=== PATIENT | female | born 1960 | race Caucasian/White ===

== ENCOUNTER 2018-04-29 08:24 | Outpatient (CLI) | payer OTHER | END 2018-04-29 08:25 | disposition home or self-care (01) | LOC: BICMAMMO 08:24 | PROVIDERS: ATTEND Student in an Organized Health Care Education/Training Program | DX: Z12.31 Encounter for screening mammogram for malignant neoplasm of breast (principal) | CPT/HCPCS: 77063; 77067 ==

== ENCOUNTER 2018-06-12 07:59 | Outpatient (CLI) | payer OTHER ==
--- NOTE | 2018-06-12 10:33 | CT ---
CT ABDOMEN AND PELVIS PERFORMED WITH AND WITHOUT CONTRAST ENHANCEMENT: HISTORY: Two instances of gross hematuria over the past two to three months, and also a history of a UTI. FINDINGS: ABDOMEN: The lung bases are clear. The liver shows a 1 cm hypodensity within the left lobe, difficult to characterize due to the small s ize, but does not appear to show any enhancement and is probably a small cyst. The spleen, pancreas, and gallbladder regions all appear unremarkable. The right and left adrenal glands are normal. The right and left kidneys are normal in size. There are no renal calculi seen. No obstruction. Th ere are some tiny, subcentimeter hypodensities involving both kidneys, statistically most likely tiny cysts. No dilatation of either collecting system, and no filling defects. No significant periaortic or mesenteric adenopathy. PELVIS: There is no evidence of any significant adenopathy, mass, or free fluid. The bladder region appears unremarkable. IMPRESSION: No evidence of renal calculi. Tiny hypodensities involving both kidneys appear to represent small cy sts. POS: [facility]
[2018-06-12] MEDS ORDERED: ISOVUE-370 76%-LOCM 1 ML ONE (16:14)
== END 2018-06-12 08:00 | disposition home or self-care (01) ==
LOC: BICCT 07:59
PROVIDERS: ATTEND Urology
DX: N39.0 Urinary tract infection, site not specified (principal); N28.89 Other specified disorders of kidney and ureter; Z87.448 Personal history of other diseases of urinary system
CPT/HCPCS: 74178

== ENCOUNTER 2019-05-03 09:52 | Outpatient (CLI) | payer OTHER ==
--- NOTE | 2019-05-03 10:48 | MMO ---
Bilateral MAMMO Bilat Screen [facility]. CLINICAL HISTORY: Patient is 58 years old and is seen for screening. The patient has no family history of breast cancer. The patient has no personal history of cancer. VIEWS: The views performed were: bilateral craniocaudal with tomosynthesis; bilateral mediolateral oblique with tomosynthesis; and bilateral exaggerated craniocaudal. FILMS COMPARED: The present examination has been compared to prior imaging studies performed at [facility] on 04/28/2013, 05/08/2015, 05/10/2016 and 04/29/2018. This study has been interpreted with the assistance of computer-aided detection. MAMMOGRAM FINDINGS: The breasts are extremely dense, which may lower the sensitivity of mammography. There are stable benign appearing calcifications seen in both breasts. There are no suspicious masses, suspicious calcifications, or new areas of architectural distortion. IMPRESSION: THERE IS NO MAMMOGRAPHIC EVIDENCE OF MALIGNANCY. A ROUTINE FOLLOW-UP MAMMOGRAM IN 1 YEAR IS RECOMMENDED. THE RESULTS OF THIS EXAM WERE SENT TO THE PATIENT. ACR BI-RADS Category 2 - Benign finding MAMMOGRAPHY NOTE: 1. A negative mammogram report should not delay a biopsy if a dominant of clinically suspicious mass is present. 2. Approximately 10% to 15% of breast cancers are not detected by mammography. 3. Adenosis and dense breasts may obscure an underlying neoplasm. Reported by: YURY CRAIG MD Electonically Signed: [id number]
== END 2019-05-03 09:53 | disposition home or self-care (01) ==
LOC: BICMAMMO 09:52
PROVIDERS: ATTEND Student in an Organized Health Care Education/Training Program
DX: Z12.31 Encounter for screening mammogram for malignant neoplasm of breast (principal)
CPT/HCPCS: 77063; 77067

== ENCOUNTER 2020-05-05 12:23 | Outpatient (CLI) | payer OTHER ==
--- NOTE | 2020-05-05 14:01 | MMO ---
Bilateral MAMMO Bilat Screen [facility]. CLINICAL HISTORY: Patient is 59 years old and is seen for screening. The patient has no family history of breast cancer. The patient has no personal history of cancer. The patient has a history of bilateral mastopexy in July,. VIEWS: The views performed were: bilateral craniocaudal with tomosynthesis and bilateral mediolateral oblique with tomosynthesis. FILMS COMPARED: The present examination has been compared to prior imaging studies performed at [facility] on 05/08/2015, 05/10/2016, 04/29/2018 and 05/03/2019. This study has been interpreted with the assistance of computer-aided detection. MAMMOGRAM FINDINGS: The breasts are extremely dense, which may lower the sensitivity of mammography. There are benign appearing calcifications seen in both breasts. There are post-operative changes. There are no suspicious masses, suspicious calcifications, or new areas of architectural distortion. IMPRESSION: THERE IS NO MAMMOGRAPHIC EVIDENCE OF MALIGNANCY. A ROUTINE FOLLOW-UP MAMMOGRAM IN 1 YEAR IS RECOMMENDED. THE RESULTS OF THIS EXAM WERE SENT TO THE PATIENT. ACR BI-RADS Category 2 - Benign finding MAMMOGRAPHY NOTE: 1. A negative mammogram report should not delay a biopsy if a dominant of clinically suspicious mass is present. 2. Approximately 10% to 15% of breast cancers are not detected by mammography. 3. Adenosis and dense breasts may obscure an underlying neoplasm. Reported by: JOSSIE BERG MD Electonically Signed: [id number]
== END 2020-05-05 12:24 | disposition home or self-care (01) ==
LOC: BICMAMMO 12:23
PROVIDERS: ATTEND Student in an Organized Health Care Education/Training Program
DX: Z12.31 Encounter for screening mammogram for malignant neoplasm of breast (principal); Z98.890 Other specified postprocedural states
CPT/HCPCS: 77063; 77067

== ENCOUNTER 2020-11-13 12:56 | Outpatient (CLI) | payer OTHER | END 2020-11-13 12:57 | disposition home or self-care (01) | LOC: BICRAD 12:56 | PROVIDERS: ATTEND Internal Medicine | DX: M79.606 Pain in leg, unspecified (principal) | CPT/HCPCS: 72100 ==

== ENCOUNTER 2021-05-07 10:38 | Outpatient (CLI) | payer OTHER | END 2021-05-07 10:39 | disposition home or self-care (01) | LOC: BICMAMMO 10:38 | PROVIDERS: ATTEND Student in an Organized Health Care Education/Training Program | DX: Z12.31 Encounter for screening mammogram for malignant neoplasm of breast (principal); Z98.890 Other specified postprocedural states | CPT/HCPCS: 77063; 77067 ==

== ENCOUNTER 2022-05-08 08:33 | Outpatient (CLI) | payer OTHER | END 2022-05-08 08:34 | disposition home or self-care (01) | LOC: BICMAMMO 08:33 | PROVIDERS: ATTEND Student in an Organized Health Care Education/Training Program | DX: Z12.31 Encounter for screening mammogram for malignant neoplasm of breast (principal); Z98.890 Other specified postprocedural states | CPT/HCPCS: 77063; 77067 ==

== ENCOUNTER 2023-03-03 14:09 | Outpatient (CLI) | payer OTHER | END 2023-03-03 14:10 | disposition home or self-care (01) | LOC: RAD 14:09 | PROVIDERS: ATTEND Student in an Organized Health Care Education/Training Program | DX: M25.562 Pain in left knee (principal); M79.671 Pain in right foot ==

== ENCOUNTER 2023-05-13 13:45 | Outpatient (CLI) | payer OTHER | END 2023-05-13 13:46 | disposition home or self-care (01) | LOC: BICMAMMO 13:45 | PROVIDERS: ATTEND Obstetrics & Gynecology | DX: Z12.31 Encounter for screening mammogram for malignant neoplasm of breast (principal); Z98.890 Other specified postprocedural states | CPT/HCPCS: 77063; 77067 ==

== ENCOUNTER 2024-05-14 09:43 | Outpatient (CLI) | payer OTHER | END 2024-05-14 09:44 | disposition home or self-care (01) | LOC: BICMAMMO 09:43 | PROVIDERS: ATTEND Obstetrics & Gynecology | DX: Z12.31 Encounter for screening mammogram for malignant neoplasm of breast (principal); N64.89 Other specified disorders of breast | CPT/HCPCS: 77063; 77067 ==

== ENCOUNTER 2024-05-20 08:07 | Outpatient (CLI) | payer OTHER | END 2024-05-20 08:08 | disposition home or self-care (01) | LOC: BICMAMMO 08:07 | PROVIDERS: ATTEND Obstetrics & Gynecology | DX: N64.89 Other specified disorders of breast (principal); R92.30 Dense breasts, unspecified | CPT/HCPCS: G0279 ==